=== PATIENT | female | born 1970 | race African-American/Black ===

== ENCOUNTER → 2016-11-09 | Outpatient (CLI) | payer OTHER ==
[~2016-11-09] MED LIST: CALCIUM 600 +1 EAC5 PO; FISH OIL 1,2001 EAC4 PO; GABAPENTIN300 MG PO; HAIR, SKIN & N1 EAC2 PO; HYDROCODON-ACE1 EAC5 PO; LEVOXYL125 MCG PO; LISINOPRIL20 MG PO; NAPROSYN500 MG PO; PEPCID40 MG PO; SPIRONOLACTONE50 MG PO; TIZANIDINE HCL4 M1 PO; ULTRAM PO
== END | disposition home or self-care (01) ==
LOC: CBAR 13:12
DX: Z01.812 Encounter for preprocedural laboratory examination (principal); E66.01 Morbid (severe) obesity due to excess calories
CPT/HCPCS: 36415; 84443; 86677; G0463

== ENCOUNTER → 2016-12-01 | Outpatient (CLI) | payer OTHER ==
--- NOTE | ~2016-12-01 | EKG ---
PATIENT: LARRY ACOSTA UNIT #: [id number] Ventricular Rate: 51 BPM Atrial Rate: 51 BPM P-R Interval: 156 ms QRS Duration: 92 ms Q-T Interval: 416 ms QTC Calculation(Bezet): 383 ms P [place]: 44 degrees Calculated R [place]: 10 degrees Calculated T [place]: 22 degrees Diagnosis Line: Sinus bradycardia with sinus arrhythmia Diagnosis Line: Otherwise normal ECG Diagnosis Line: No previous ECGs available Diagnosis Line: Confirmed by SARA CHOW MD ([id number]) on 12/01/2016 Diagnosis Line: 5:26:36 PM INTERPRETING MD: CLAUDINE WALKER
--- NOTE | ~2016-12-01 | CR97 ---
[facility] A Service of [facility] & [facility] RADIOLOGY TEXT RESULTS PATIENT: LARRY ACOSTA LOCATION: [facility] : 74 UNIT #: [id number] AGE: [address]: Johnny Colorado III, MD SEX: F ORDER DR: [id number] [address] [place], [place] [address] [id number] O MR#: [id number] Acc #: [id number] NAME: LARRY ACOSTA : 1970 SEX: F STUDY DATE/TIME: 12/01/2016 8:27 UNIT: [facility] ROOM: STUDY DESCRIPTION: CR Esophagram Attending Physician: Johnny Colorado III, M.D. Referring Physician: Johnny Colorado III, M.D. Ordering Physician: Johnny Colorado III, M.D. Primary Care Physician: Solo Sal A.P.R.N. MEDICAL IMAGING REPORT This report is preliminary unless electronic signature is present EXAM Esophagram, 12/01/2016 HISTORY Planned bariatric surgery. PROCEDURE Solid column upper GI was performed with 0.3 minutes of fluoroscopy and 5 spot images. FINDINGS Esophagus is normal course and caliber. There is no stricture or mass or ulceration or hernia. IMPRESSION Normal esophagram. Dictated by... Monty Ash M.D. THIS IS AN ELECTRONICALLY VERIFIED REPORT Monty Ash M.D. at 12/04/2016 9:06 AM BE/zuhair TD: 12/02/2016 00:52 JOB #: [id number] MEDICAL IMAGING REPORT Page 1 of 1 COPY
--- NOTE | ~2016-12-01 | CR63 ---
[facility] A Service of [facility] & [facility] RADIOLOGY TEXT RESULTS PATIENT: LARRY ACOSTA LOCATION: [facility] : 74 UNIT #: [id number] AGE: [address]: Johnny Colorado III, MD SEX: F ORDER DR: [id number] [facility] [address] [place], [place] [address] [id number] O MR#: [id number] Acc #: [id number] NAME: LARRY ACOSTA : 1970 SEX: F STUDY DATE/TIME: 12/01/2016 8:06 UNIT: [facility] ROOM: STUDY DESCRIPTION: CR Chest 2 View Attending Physician: Johnny Colorado III, M.D. Referring Physician: Johnny Colorado III, M.D. Ordering Physician: Johnny Colorado III, M.D. Primary Care Physician: Solo Sal A.P.R.N. MEDICAL IMAGING REPORT This report is preliminary unless electronic signature is present EXAM Chest PA and lateral 12/01/2016 HISTORY Shortness of breath on exertion for 3 days. Morbid obesity. Preop laparoscopic gastric banding. Benign essential hypertension. FINDINGS PA and lateral examination of the chest upright shows a good expansion of the parenchyma with a normal distribution of the pulmonary vascularity. There is no indication of congestion, effusion, infiltrate, tumor, or nodular density. The pleural reflections and diaphragmatic contours are normal. The cardiac silhouette and mediastinal anatomy is within normal limits. IMPRESSION Normal chest. Dictated by... Martir Millan M.D. THIS IS AN ELECTRONICALLY VERIFIED REPORT Martir Millan M.D. at 12/04/2016 7:32 AM Holly TD: 12/01/2016 16:43 JOB #: [id number] MEDICAL IMAGING REPORT Page 1 of 1 COPY
[2016-12-01 09:24] LABS: HEMATOCRIT 38.9 % (35.0-45.0); HEMOGLOBIN 13.2 gm/dL (12.0-16.0); MEAN CELL VOLUME 89.6 FL (83-96); MEAN CORPUSCULAR HEMOGLOBIN 30.3 PG (28-34); MEAN CORPUSCULAR HGB CONC 33.8 g/dL (30-36); MEAN PLATELET VOLUME 10.6 FL (6.5-11.5); RED BLOOD COUNT 4.35 X10e (3.90-5.30); RED CELL DISTRIBUTION WIDTH 14.1 % (11.0-15.5); WHITE BLOOD COUNT 5.8 X10e3 (4.0-10.5)
[2016-12-01 09:55] LABS: ALBUMIN SERUM 3.8 g/dL (3.5-5.0); BILIRUBIN,TOTAL 0.7 mg/dL (0.2-2.0); CALCIUM SERUM 8.9 mg/dL (8.4-10.2); GLOM FILT RATE Estimated 79.4 mL/min (>60); POTASSIUM 4.6 mmol/L (3.5-5.1); PROTEIN TOTAL SERUM 6.7 g/dL (6.0-8.3)
== END | disposition home or self-care (01) ==
LOC: CRAD 07:46 → CAMB 09:00
PROVIDERS: Surgery
DX: Z01.818 Encounter for other preprocedural examination (principal); E66.01 Morbid (severe) obesity due to excess calories
CPT/HCPCS: 36415; 71020; 74220; 80053; 80061; 84443; 85027; 93005

== ENCOUNTER → 2016-12-13 | Day surgery (SDC) | payer OTHER ==
--- NOTE | ~2016-12-13 | OR ---
Unit #: [id number] #: [id number] Patient: LARRY ACOSTA [id number] [facility] [address] [facility]. [place], [place] [address] [id number] O MR#: [id number] NAME: LARRY ACOSTA ROOM: Date of Procedure: 12/13/2016 Admission Date: 12/13/2016 Surgeon: Johnny Colorado III, M.D. : 1970 Attending Physician: Johnny Colorado III, M.D. Primary Care Physician: Solo Sal A.P.R.N. OPERATIVE REPORT PREOPERATIVE DIAGNOSIS Chronic severe obesity. POSTOPERATIVE DIAGNOSIS Chronic severe obesity. SECONDARY DIAGNOSES Anterior paraesophageal hernia. PROCEDURES PERFORMED Laparoscopic adjustable gastric banding (AP standard with low-profile port) and laparoscopic paraesophageal hernia repair. DRYING MACHINE RECEIVER Dr. Santos Buckley. SPECIMENS None. COMPLICATIONS None apparent. ESTIMATED BLOOD LOSS Minimal. ANESTHESIA General endotracheal tube anesthesia. INDICATIONS FOR PROCEDURE This is a 46-year-old lady, who has chronic severe obesity with a BMI of 37 and associated comorbidities of hypertension, reflux, and sleep apnea. She has been through the bariatric program at [facility] and understands the risks and benefits of the procedure. DESCRIPTION OF PROCEDURE After consent was obtained, including the risks and benefits of slippage, erosion, port dysfunction, and possible failure of weight loss due to noncompliance, the patient was taken to the operating room and placed in the supine position. General anesthetic was administered and the abdomen was prepped and draped in standard surgical fashion. I began by making a 2 cm incision just above and to the left of the Unit #: [id number] #: [id number] Patient: LARRY ACOSTA umbilicus. I used a Visiport to enter the peritoneal cavity without any difficulty. C02 pneumoperitoneum was then established. Next, I placed a 5 mm port in the right upper quadrant, a 5 mm Indu liver retractor in the subxiphoid region to provide exposure of the gastroesophageal junction. Next, a 10 mm port was placed in the left upper quadrant and a 5 mm port was placed in the left lateral subcostal region. I began by performing an examination of the GE junction to evaluate for a hiatal hernia. We then scored the peritoneal attachments overlying the angle of His. I then opened up the clear space in the gastrohepatic ligament, and then using 2 blunt graspers, I identified the small fat pad crossing over the right crura. I swept the fat anterior to the crura off the crura and using the pars flaccida, I created a retrogastric tunnel where the blunt grasper exited at the angle of His. Once I had made this tunnel safely, I then inserted an Allergan AP band into the abdominal cavity. This adjustable gastric band was then place around the upper part of the stomach and fastened and buckled anteriorly. We then tacked the lateral fundus over the band to the proximal pouch with 2 interrupted 0 Ethibond sutures. I then used a third stitch to imbricate the excess anterior stomach by going from the lesser curvature up towards where the last stitch was placed. We then had excellent hemostasis. I removed the Indu liver retractor. We then removed the port tubing through the initial port incision. The rest of the ports were removed, and the pneumoperitoneum was released. I then left a small tail on the tubing. We then attached the port to the excess band tubing. We placed a piece of Prolene mesh along the back side of the port and used a Prolene stitch to anchor this mesh in place. We then trimmed the excess mesh so that just a small footprint of mesh was in place behind the port. I then inserted the tubing back into the abdominal cavity, and we placed the port into a small pocket that was made just inferior to where our initial port incision was made. The mesh was in direct contact with the fascia, and this will scar in place to hold the port in place. We then injected all the port sites with 0.25% plain Marcaine, and I reapproximated the skin edges with interrupted 4-0 Vicryl subcuticular sutures. Steri-strips were then applied. The patient tolerated the procedure without any problems and returned to the recovery room in stable condition. ADDENDUM After exposure of the GE junction, the patient was noted to have a small to medium size anterior paraesophageal hernia. I scored the phrenoesophageal ligament, reduced the hernia defect including the hernia sac and after identifying both the right and left crura, I reapproximated the defect with an interrupted 0 Ethibond [id number] suture. I then proceeded with the case as listed above. Dictated by... Johnyn Colorado III, M.D. VCL/biju TD: 12/14/2016 11:44 JOB #: [id number] CC: Solo Sal A.P.R.N. Unit #: [id number] #: [id number] Patient: LARRY ACOSTA OPERATIVE REPORT Page 1 of 1 X Johnny Colorado III, MD PROCEDURE OPERATIVE NOTE
--- NOTE | ~2016-12-13 | CR7 ---
[facility] A Service of [facility] & [facility] RADIOLOGY TEXT RESULTS PATIENT: LARRY ACOSTA LOCATION: [facility] : 74 UNIT #: [id number] AGE: [address]: Johnny Colorado III, MD SEX: F ORDER DR: [id number] [facility] [address] [facility] [facility]. [place], [place] [address] [id number] O MR#: [id number] Acc #: [id number] NAME: LARRY ACOSTA : 1970 SEX: F STUDY DATE/TIME: 12/13/2016 8:41 UNIT: [facility] ROOM: STUDY DESCRIPTION: CR Abdomen Single AP View Attending Physician: Johnny Colorado III, M.D. Ordering Physician: Johnny Colorado III, M.D. Primary Care Physician: Solo Sal A.P.R.N. MEDICAL IMAGING REPORT This report is preliminary unless electronic signature is present EXAM Abdomen 12/13 INDICATIONS Status post gastric band placement today. Morbid obesity. FINDINGS Supine view of the abdomen is obtained. Gastric band is present with phi angle of 61 degrees. Bowel gas pattern normal. Port in the left lower quadrant. IMPRESSION Gastric band in place with a phi angle of 61 degrees. Dictated by... Dylan Sommers Jr., M.D. THIS IS AN ELECTRONICALLY VERIFIED REPORT Dylan Sommers Jr., M.D. at 12/13/2016 3:38 PM RANDA/regino TD: 12/13/2016 14:42 JOB #: [id number] MEDICAL IMAGING REPORT Page 1 of 1 COPY
== END | disposition home or self-care (01) ==
LOC: CSUR 05:42
DX: E66.01 Morbid (severe) obesity due to excess calories (principal); K44.9 Diaphragmatic hernia without obstruction or gangrene; I10 Essential (primary) hypertension; K21.9 Gastro-esophageal reflux disease without esophagitis; G47.30 Sleep apnea, unspecified; M19.90 Unspecified osteoarthritis, unspecified site; E89.0 Postprocedural hypothyroidism; Z68.37 Body mass index [BMI] 37.0-37.9, adult; Z87.891 Personal history of nicotine dependence; Z88.5 Allergy status to narcotic agent; Z88.8 Allergy status to other drugs, medicaments and biological substances; Z90.710 Acquired absence of both cervix and uterus
CPT/HCPCS: 74000; C1781; J0330; J0690; J1650; J1885; J2250; J2405; J2710; J3010